=== PATIENT | female | born 1980 | race Caucasian/White ===

== ENCOUNTER 2016-10-28 15:23 | Emergency (ER) | payer OTHER ==
[~2016-10-28] VITALS: Ht 154.9 cm; Wt 80.4 kg
[2016-10-28 16:16] LABS: HEMATOCRIT 39.4 % (36.0-46.0); MCH 27.3 PG (29.0-34.0); MCV 82.6 FL (83-99); MEAN PLAT.VOLUME 10.3 uM^3 (9.5-12.4); PLATELET COUNT 284 K/uL (156-360); RBC DIS.WIDTH-CV 12.2 % (11.8-14.6); RBC DIS.WIDTH-SD 37.1 % (39-53); RED BLOOD COUNT 4.77 M/uL (3.80-5.20); WHITE BLOOD COUNT 10.3 K/uL (4.1-10.2)
[2016-10-28 16:27] LABS: CHLORIDE 103 mEq/L (99-109); SODIUM 136 mEq/L (136-147)
[2016-10-28 16:29] LABS: GLUCOSE 81 mg/dL (70-99)
[2016-10-28 16:30] LABS: ANION GAP 11 MEQ/L (2-14)
[2016-10-28 16:31] LABS: TOTAL BILIRUBIN 0.3 mg/dL (0.0-1.0)
[2016-10-28 16:32] LABS: ALKALINE PHOSPHATASE 69 IU/L (3-129)
[2016-10-28 16:33] LABS: GFR ESTIMATE (CALCULATED) > 59 mL/min/
[2016-10-28 16:34] LABS: UREA NITROGEN (BUN) 11 mg/dL (9-23)
[2016-10-28 16:36] LABS: LIPASE 30 U/L (1.0-51.0)
[2016-10-28 16:38] LABS: ADD MIUA? YES; BILIRUBIN NEGATIVE; BLOOD SMALL; COLOR YELLOW ((YELLOW)); GLUCOSE (STRIP) NEGATIVE; KETONES NEGATIVE; LEUKOCYTES MODERATE; NITRITE NEGATIVE; PROTEIN (STRIP) NEGATIVE; SPECIFIC GRAVITY 1.008 (1.000-1.030); UROBILINOGEN 0.2 MG/DL (0.2-1.0)
[2016-10-28 16:45] LABS: BACTERIA 1+ /HPF; EPITHELIAL CELLS 3+ /HPF; MUCUS TRACE /LPF; RED BLOOD CELLS 0-5 /HPF (0-5); UCUL ADDED? NO
[2016-10-28 16:54] LABS: QUANTITATIVE HCG < 4.0 MIU/ML
[2016-10-28] MEDS ORDERED: TRAMADOL HCL50 MG PO (17:37)
[2016-10-28] MEDS ORDERED: CIPRO500 MG PO (17:37)
[2016-10-28 17:53] VITALS: BP 162/100
== END 2016-10-28 17:54 | disposition home or self-care (01) ==
LOC: EME 15:23
PROVIDERS: Physician Assistant
DX: N10 Acute pyelonephritis (principal); R91.1 Solitary pulmonary nodule; R03.0 Elevated blood-pressure reading, without diagnosis of hypertension; Z87.442 Personal history of urinary calculi
CPT/HCPCS: 74176; 80053; 81003; 83690; 84702; 85027; 87086; 99281; 99283

== ENCOUNTER → 2016-12-22 | Outpatient (CLI) | payer OTHER ==
[~2016-12-22] MED LIST: CIPRO500 MG PO; ERGOCALCIF50000 UNIT PO; IBUPROFEN600 MG PO; LYRICA75 MG PO; OCELLA TABLET1 EACH PO; TRAMADOL HCL50 MG PO
== END | disposition home or self-care (01) ==
LOC: OPR 09:45 → EDSTATUS 10:00
PROC: 0BB63ZX Excision of Right Lower Lobe Bronchus, Percutaneous Approach, Diagnostic (ICD-10-PCS; principal; 2016-12-22)
DX: J84.10 Pulmonary fibrosis, unspecified (principal); Z87.891 Personal history of nicotine dependence; R01.1 Cardiac murmur, unspecified; Z80.8 Family history of malignant neoplasm of other organs or systems
CPT/HCPCS: 71010; 77012; 85027; 85610; 85730; 88305; 88312; J3010